=== PATIENT | female | born 1995 | race Caucasian/White ===

== ENCOUNTER 2022-04-21 17:19 | Emergency (ER) | payer BC ==
[2022-04-21 17:25] VITALS: BP 156/69
[2022-04-21] MEDS ORDERED: Ketorolac 30 MG/ML SDV IM ONE (17:32)
[2022-04-21 18:23] LABS: CORONAVIRUS COVID-19 NAA NEGATIVE (NEGATIVE); RESPIRATORY SYNCYTIAL VIR NAA NEGATIVE (NEGATIVE)
[2022-04-21 18:49] VITALS: PULSE 115
== END 2022-04-21 18:45 | disposition home or self-care (01) ==
LOC: CC.ED 17:19
DX: B34.9 Viral infection, unspecified (principal); Z88.5 Allergy status to narcotic agent; Z88.1 Allergy status to other antibiotic agents; Z86.16 Personal history of COVID-19; Z20.822 Contact with and (suspected) exposure to COVID-19
CPT/HCPCS: 0241U; 96372; 99283; J1885

== ENCOUNTER 2022-07-20 16:42 | Emergency (ER) | payer SELFPAY ==
[2022-07-20 16:46] VITALS: BP 133/63; PULSE 114
[2022-07-20] MEDS: Ondansetron 4 MG/2 ML SDV IVPUSH PRN (16:59)
[2022-07-20] MEDS: Sodium Chloride 0.9% 1,000 ML IV ONE ×2 (16:59→17:59)
[2022-07-20] MEDS: Cephalexin 500 MG Cap PO ONE (17:55)
[2022-07-20] MEDS: Take Home: Ondansetron 4 MG Tab.DIS, 2 Tab Pack PO ONE (18:10)
[2022-07-20] MEDS: Take Home: Cephalexin 500 MG Cap, 6 Cap Pack PO ONE (18:12)
== END 2022-07-20 19:04 | disposition home or self-care (01) ==
LOC: CC.ED 16:42
DX: O23.11 Infections of bladder in pregnancy, first trimester (principal); N30.00 Acute cystitis without hematuria; Z88.1 Allergy status to other antibiotic agents; Z88.5 Allergy status to narcotic agent; Z3A.11 11 weeks gestation of pregnancy
CPT/HCPCS: 36415; 80053; 81001; 85025; 86140; 87086; 87088; 87186; 96361; 96374; 99284; 99284-25; A9270-GY; J2405; J7030

== ENCOUNTER 2022-07-21 19:26 | Observation (INO) | payer SELFPAY ==
[2022-07-21] MEDS ORDERED: Sodium Chloride 0.9% 1,000 ML IV ONE (19:28)
[2022-07-21] MEDS ORDERED: Acetaminophen 325 MG Tab PO ONE (19:28)
[2022-07-21] MEDS ORDERED: cefTRIAXone 1 GM Vial IVPUSH ONE (21:11)
[2022-07-21] MEDS ORDERED: Ondansetron 4 MG Tab.DIS PO PRN (21:42)
[2022-07-21] MEDS ORDERED: Ondansetron 4 MG/2 ML SDV IV PRN (21:42)
[2022-07-21] MEDS: Sodium Chloride 0.9% 1,000 ML IV SCH (22:25)
[2022-07-21] MEDS: Acetaminophen 325 MG Tab PO PRN (23:51)
[2022-07-22] MEDS: Acetaminophen 325 MG Tab PO PRN ×2 (07:30→19:09)
[2022-07-22] MEDS: Sodium Chloride 0.9% 1,000 ML IV SCH ×2 (08:13→20:38)
[2022-07-22] MEDS ORDERED: cefTRIAXone 1 GM Vial IVPUSH SCH (18:00)
[2022-07-23] MEDS: Acetaminophen 325 MG Tab PO PRN (03:02)
[2022-07-23] MEDS: Sodium Chloride 0.9% 1,000 ML IV SCH (07:00)
[2022-07-23 08:06] VITALS: BP 111/56; PULSE 84
[2022-07-23] MEDS ORDERED: [UNRECOGNIZED DRUG - REMARK] PO SCH (08:45)
[2022-07-23] MEDS ORDERED: cefTRIAXone 1 GM Vial IVPUSH SCH (12:00)
== END 2022-07-23 12:14 | disposition home or self-care (01) ==
LOC: CC.ED 19:26 → CC.MS 21:30 → UNDOADMOB 21:30 → CC.MS 21:34
PROVIDERS: ADMIT Nurse Practitioner Family; ATTEND Nurse Practitioner Family
DX: O23.01 Infections of kidney in pregnancy, first trimester (principal); F41.9 Anxiety disorder, unspecified; F31.9 Bipolar disorder, unspecified; G43.909 Migraine, unspecified, not intractable, without status migrainosus; F17.210 Nicotine dependence, cigarettes, uncomplicated; Z79.899 Other long term (current) drug therapy; Z88.1 Allergy status to other antibiotic agents; Z88.5 Allergy status to narcotic agent; Z98.890 Other specified postprocedural states
CPT/HCPCS: 36415; 76770; 80053; 83605; 85025; 86140; 87040; 96361; 96374; 96376; 99223; 99232; 99239; 99285-25; A9270-GY; G0378; J0696; J7030

== ENCOUNTER 2022-09-22 17:14 | Emergency (ER) | payer BC ==
[2022-09-22 18:09] VITALS: BP 123/74; PULSE 94
== END 2022-09-22 18:30 | disposition home or self-care (01) ==
LOC: CC.ED 17:14
DX: O99.612 Diseases of the digestive system complicating pregnancy, second trimester (principal); K59.00 Constipation, unspecified; Z3A.20 20 weeks gestation of pregnancy; Z88.1 Allergy status to other antibiotic agents; Z88.5 Allergy status to narcotic agent
CPT/HCPCS: 36415; 80053; 81003; 85025; 99284